=== PATIENT | male | born 1970 | race Caucasian/White ===

== ENCOUNTER → 2017-07-28 | Outpatient (CLI) | payer MEDICAID ==
[~2017-07-28] MED LIST: CARB400T PO; CLON2TAB2 PO; DIAZ10TA4 PO; ISON300T4 PO; LOSA50TA6 PO; METH4TAB2 PO; OXYC5TAB3 PO; PHEN100C4 PO; PHEN50TA4 PO; PYRI50TA9 PO; VALP250C PO; [UNRECOGNIZED DRUG - OTHER]
== END | disposition home or self-care (01) ==
LOC: ROC 14:39 → EDBD 14:39
PROVIDERS: ATTEND Radiology Radiation Oncology
DX: D32.0 Benign neoplasm of cerebral meninges (principal)
CPT/HCPCS: 99214; G0463